=== PATIENT | female | born 1955 | race Caucasian/White ===

== ENCOUNTER 2019-05-01 17:58 | Emergency (ER) | payer BC ==
[~2019-05-01] VITALS: Ht 170.2 cm; Wt 92.1 kg
[~2019-05-01 17:58] MED LIST changes: -Carafate1 GM/10 ML PO; -Protonix40 MG PO
[2019-05-01] MEDS ORDERED: Carafate1 GM/10 ML PO (21:38)
[2019-05-01] MEDS ORDERED: Protonix40 MG PO (21:38)
== END 2019-05-01 22:45 | disposition home or self-care (01) ==
LOC: ER 17:58
DX: K29.70 Gastritis, unspecified, without bleeding (principal); K44.9 Diaphragmatic hernia without obstruction or gangrene; K42.9 Umbilical hernia without obstruction or gangrene; J45.909 Unspecified asthma, uncomplicated; Z88.1 Allergy status to other antibiotic agents; Z91.012 Allergy to eggs; Z91.011 Allergy to milk products; Z88.2 Allergy status to sulfonamides; Z88.8 Allergy status to other drugs, medicaments and biological substances; Z91.018 Allergy to other foods; Z79.899 Other long term (current) drug therapy
CPT/HCPCS: 74176; 96374; 99284-25; C9113

== ENCOUNTER → 2019-05-01 | Outpatient (CLI) | payer BC ==
[~2019-05-01] MED LIST: ALBU8HFA2 INH; ALBU90OI INH; ALBU90OI6 INH; AZEL137S; CHOL10002 PO; CRANBERRY; Carafate1 GM/10 ML PO; DOXY100 PO; ESZO2 PO; ESZO3 PO; FLUC150A PO; FLUSAL2505 IH; FLUT.05NI; FOLATE PO; INDO25 PO; LEVFLO500 PO; LORA10ER PO; METH5; METTREX2.5; NITR.4SL SL; OMEP20ER PO; PHENA200 PO; PROG100 PO; Protonix40 MG PO; RXPHEN200 PO; THYR60 PO; TRAZ100 PO; TRAZ50 PO; ZOLP10; [UNRECOGNIZED DRUG - OTHER]; [UNRECOGNIZED DRUG - OTHER]
[2019-05-01 15:29] LABS: BASOPHILS ABSOLUTE AUTO 0.07 K/mm3 (0.00-0.23); BASOPHILS PERCENT AUTO 1 % (0-2); EOSINOPHILS ABSOLUTE AUTO 0.02 K/mm3 (0.00-0.68); EOSINOPHILS PERCENT AUTO 0 % (0-6); Hematocrit 50.7 % (33.0-51.0); Hemoglobin 17.8 g/dL (11.5-16.0); IMMATURE GRAN ABSOLUTE AUTO 0.02 K/mm3 (0.00-0.10); IMMATURE GRAN PERCENT AUTO 0 % (0-1); LYMPHOCYTES ABSOLUTE AUTO 0.56 K/mm3 (0.84-5.20); LYMPHOCYTES PERCENT AUTO 7 % (21-46); MONOCYTES ABSOLUTE AUTO 0.61 K/mm3 (0.16-1.47); MONOCYTES PERCENT AUTO 7 % (4-13); Mean Corpuscular HGB 34.2 pg (26.0-34.0); Mean Corpuscular HGB Conc 35.1 g/dL (31.5-36.5); Mean Corpuscular Volume 97 fL (80-100); Mean Platelet Volume 10.9 fL (9.1-12.4); NEUTROPHILS ABSOLUTE AUTO 6.93 K/mm3 (1.96-9.15); NEUTROPHILS PERCENT AUTO 85 % (41-73); Platelet Count 255 K/mm3 (150-400); RDW Coefficient Variation 13.3 % (11.7-14.2); RDW Standard Deviation 48.3 fL (35.1-46.3); Red Blood Cell Count 5.21 M/mm3 (3.80-5.20); White Blood Cell Count 8.21 K/mm3 (4.00-11.30)
[2019-05-01 16:03] LABS: Albumin, Blood 4.2 g/dL (3.4-5.0); Albumin/Globulin Ratio 1.1 (0.8-1.8); Bilirubin, Total 1.3 mg/dL (0.1-1.0); Bun/Creatinine Ratio 13.9 (12.0-20.0); Creatinine, Blood 1.08 mg/dL (0.40-1.00); Thyroid Stimulating Hormone 0.404 uIU/mL (0.360-4.800); Total Protein, Blood 8.2 g/dL (6.4-8.2)
== END ==
LOC: LAB SHORT 15:16 → LAB EV 15:16
PROVIDERS: Nurse Practitioner
DX: R10.9 Unspecified abdominal pain (principal)
CPT/HCPCS: 80053; 83690; 84443; 85025

== ENCOUNTER → 2020-05-23 | Outpatient (CLI) | payer BC ==
[~2020-05-23] MED LIST changes: +Carafate1 GM/10 ML PO; +Protonix40 MG PO
== END | disposition home or self-care (01) ==
LOC: LAB SHORT 10:53 → PLD 10:53
DX: D22.71 Melanocytic nevi of right lower limb, including hip (principal)
CPT/HCPCS: 88305

== ENCOUNTER → 2020-06-07 | Outpatient (CLI) | payer BC | END | disposition home or self-care (01) | LOC: PLD 08:47 → LAB SHORT 08:47 | DX: D22.5 Melanocytic nevi of trunk (principal) | CPT/HCPCS: 88305 ==

== ENCOUNTER 2020-11-20 14:58 | Observation (INO) | payer BC ==
[~2020-11-20] VITALS: Ht 170.2 cm; Wt 109.0 kg
[2020-11-20] MEDS ORDERED: PROG100 PO (15:27)
[2020-11-20 15:28] LABS: BASOPHILS ABSOLUTE AUTO 0.04 K/mm3 (0.00-0.23); BASOPHILS PERCENT AUTO 1 % (0-2); EOSINOPHILS ABSOLUTE AUTO 0.12 K/mm3 (0.00-0.68); EOSINOPHILS PERCENT AUTO 2 % (0-6); Hematocrit 43.8 % (33.0-51.0); Hemoglobin 14.7 g/dL (11.5-16.0); IMMATURE GRAN ABSOLUTE AUTO 0.02 K/mm3 (0.00-0.10); IMMATURE GRAN PERCENT AUTO 0 % (0-1); LYMPHOCYTES ABSOLUTE AUTO 1.27 K/mm3 (0.84-5.20); LYMPHOCYTES PERCENT AUTO 18 % (21-46); MONOCYTES ABSOLUTE AUTO 0.59 K/mm3 (0.16-1.47); MONOCYTES PERCENT AUTO 9 % (4-13); Mean Corpuscular HGB 31.8 pg (26.0-34.0); Mean Corpuscular HGB Conc 33.6 g/dL (31.5-36.5); Mean Corpuscular Volume 95 fL (80-100); Mean Platelet Volume 10.4 fL (9.1-12.4); NEUTROPHILS ABSOLUTE AUTO 4.92 K/mm3 (1.96-9.15); NEUTROPHILS PERCENT AUTO 71 % (41-73); Platelet Count 293 K/mm3 (150-400); RDW Coefficient Variation 12.9 % (11.7-14.2); Red Blood Cell Count 4.62 M/mm3 (3.80-5.20); White Blood Cell Count 6.96 K/mm3 (4.00-11.30)
[2020-11-20] MEDS ORDERED: THYROID COMPOUND (15:28)
[2020-11-20] MEDS ORDERED: LISI5 PO (15:28)
[2020-11-20] MEDS ORDERED: ZYRTEC10 M2 PO (15:29)
[2020-11-20] MEDS ORDERED: GUAI600T33 (15:29)
[2020-11-20 15:49] LABS: Alanine Aminotransfer (ALT/SGP 23 U/L (12-78); Albumin, Blood 3.5 g/dL (3.4-5.0); Albumin/Globulin Ratio 0.9 (0.8-1.8); Alk Phos 74 U/L (50-136); Anion Gap 7 mmol/L (6-16); Aspartate Aminotrans (AST/SGOT 14 U/L (12-37); Bilirubin, Total 0.6 mg/dL (0.1-1.0); Blood Urea Nitrogen 12 mg/dL (8-24); CO2, Blood 25 mmol/L (21-32); Calcium, Blood 9.5 mg/dL (8.5-10.1); Chloride, Blood 108 mmol/L (98-108); Creatinine, Blood 0.86 mg/dL (0.40-1.00); Globulin, Blood 4.1 g/dL (2.2-4.0); Glomerular Filtration Rate >60 (60-); Glucose, Blood 112 mg/dL (70-99); Potassium, Blood 4.1 mmol/L (3.5-5.5); Sodium, Blood 140 mmol/L (136-145); Total Protein, Blood 7.6 g/dL (6.4-8.2); Troponin I <0.015 ng/mL (0.000-0.040)
[2020-11-20] MEDS ORDERED: IPRATROPIUM BRO15 ML (16:49)
[2020-11-20] MEDS ORDERED: THYR60 PO (16:55)
[2020-11-20] MEDS ORDERED: IODPOTL (16:56)
[2020-11-20] MEDS ORDERED: PROGESTERONE MI25 GM (16:57)
[2020-11-20] MEDS ORDERED: MAGNESIUM OXID500 MG PO (17:05)
--- NOTE | 2020-11-20 18:33 | NUR ---
PT ARRIVED TO FLOOR AOX4 AND COOPERATIVE OF CARE. PT DENIES ANY CHEST PAIN AT THIS TIME AND IS INDEPENDENT. CALL LIGHT IS WITHIN REACH WILL CONTINUE TO MONITOR.
--- NOTE | 2020-11-20 22:26 | NUR ---
PHYSICIAN CORRESPONDENCE STATES HAS BEEN WANTING TO TAKE HOME MEDICATIONS. IN A CLEAR BAG ON BEDSIDE TABLE. STATES THYROID, COMPOUNDED PROGESTERONE, AND MAG OX. DOES NOT HAVE THE BOTTLES. ON-CALL PROVIDER STATES TO HOLD OFF ON THOSE MEDICATIONS TONIGHT AND SPEAK TO ATTENDING IN THE AM.
[2020-11-21 05:02] LABS: BASOPHILS ABSOLUTE AUTO 0.05 K/mm3 (0.00-0.23); BASOPHILS PERCENT AUTO 1 % (0-2); EOSINOPHILS PERCENT AUTO 3 % (0-6); Hematocrit 41.3 % (33.0-51.0); Hemoglobin 13.6 g/dL (11.5-16.0); IMMATURE GRAN ABSOLUTE AUTO 0.01 K/mm3 (0.00-0.10); IMMATURE GRAN PERCENT AUTO 0 % (0-1); LYMPHOCYTES ABSOLUTE AUTO 1.48 K/mm3 (0.84-5.20); LYMPHOCYTES PERCENT AUTO 25 % (21-46); MONOCYTES ABSOLUTE AUTO 0.69 K/mm3 (0.16-1.47); MONOCYTES PERCENT AUTO 12 % (4-13); Mean Corpuscular HGB 31.7 pg (26.0-34.0); Mean Corpuscular HGB Conc 32.9 g/dL (31.5-36.5); Mean Corpuscular Volume 96 fL (80-100); Mean Platelet Volume 10.5 fL (9.1-12.4); NEUTROPHILS ABSOLUTE AUTO 3.39 K/mm3 (1.96-9.15); NEUTROPHILS PERCENT AUTO 58 % (41-73); Platelet Count 263 K/mm3 (150-400); Red Blood Cell Count 4.29 M/mm3 (3.80-5.20); White Blood Cell Count 5.82 K/mm3 (4.00-11.30)
[2020-11-21 05:19] LABS: Alanine Aminotransfer (ALT/SGP 21 U/L (12-78); Albumin, Blood 3.1 g/dL (3.4-5.0); Albumin/Globulin Ratio 0.9 (0.8-1.8); Alk Phos 64 U/L (50-136); Anion Gap 7 mmol/L (6-16); Aspartate Aminotrans (AST/SGOT 15 U/L (12-37); Bilirubin, Total 0.7 mg/dL (0.1-1.0); Blood Urea Nitrogen 11 mg/dL (8-24); Bun/Creatinine Ratio 12.1 (12.0-20.0); CO2, Blood 28 mmol/L (21-32); Calcium, Blood 9.2 mg/dL (8.5-10.1); Chloride, Blood 106 mmol/L (98-108); Creatinine, Blood 0.91 mg/dL (0.40-1.00); Globulin, Blood 3.4 g/dL (2.2-4.0); Glomerular Filtration Rate >60 (60-); Glucose, Blood 98 mg/dL (70-99); Potassium, Blood 4.3 mmol/L (3.5-5.5); Sodium, Blood 141 mmol/L (136-145); Total Protein, Blood 6.5 g/dL (6.4-8.2)
--- NOTE | 2020-11-21 06:00 | NUR ---
PHYSICIAN CORRESPONDENCE C/O HEADACHE. REQUESTING TYLENOL. NEW ORDER FOR TYLENOL 650 MG Q6
--- NOTE | 2020-11-21 07:29 | NUR ---
SHIFT SUMMARY A/O, ABLE TO MAKE NEEDS KNOWN. COOPERATIVE WITH CARE. CALLS AND ANSWERS QUESTIONS APPROPRIATELY. INDEPENDENT IN THE ROOM. NO C/O CHEST PAIN. DID STATE HEADACHE; NEW ORDERS FOR TYLENOL. TELE RUNNING SR IN 80s. VERY EAGER TO RETURN HOME. STATED DID NOT SLEEP AT ALL. BED REMAINED IN LOWEST POSITION. CALL LIGHT AND BELONGINGS WITHIN REACH. CONTINUE WITH CURRENT PLAN OF CARE. REPORT GIVEN TO ONCOMING RN.
--- NOTE | 2020-11-21 15:22 | NUR ---
ADMIT: 11/20/20 DISCHARGE: DX: CP CC: esa FARHAD CALL: RESIDENCE: Home CAREGIVER: Ken Vargas, Spouse / Partner, DX: Heart murmur, HTN, severe persistent asthma, hypothyroidism, see list DME: none CCM: none HOME HEALTH: none SUMMARY: Admit: 11/20/20 11/21/20- per chart review with Dr. Monson, pt has echo scheduled for today. She had an abnormal EKG and has been complaining of a headache. Pt has stated that she is eager to go home. Pt could potentially be d/c tomorrow, home. -daryl
--- NOTE | 2020-11-21 17:09 | NUR ---
PT AOX4 AND COOPERATIVE OF CARE. PT DENIES ANY CHEST PAIN AT THIS TIME AND CALLS APPROPRIATELY. PT COMPLETED FIRST PART OF STRESS TEST. PT IS WATCHING TV WITH CALL LIGHT AVAIBLE. NO DISTRESS NOTED WILL CONTINUE TO MONITOR.
--- NOTE | 2020-11-22 04:14 | NUR ---
SHIFT SUMMARY- PT. A&OX4, INDEPENDENT IN ROOM. NO COMPLAINTS OF CP OR DISCOMFORT T/O THE NIGHT. BEDTIME MEDS CLARIFIED LAST NIGHT WITH PROVIDER. PT. HAD SHOWER, RESTED QUIETLY IN BED T/O THE SHIFT. NO APPARENT DISTRESS NOTED. PT. SCHEDULED FOR 2ND PART OF STRESS TEST TODAY, HAS BEEN NPO [place]CE [place]. CALL LIGHT WITHIN REACH AND SIDE RAILS UPX2. WILL CONT TO MONITOR.
[2020-11-22 04:59] LABS: Cholesterol 240 mg/dL (50-200); HDL Cholesterol 60 mg/dL (>39); LDL/HDL RATIO 2.5; Low Density Lipoprotein Chol 151 mg/dL (0-110); Triglycerides 147 mg/dL (30-160); Very Low Density Lipoprot Chol 29 mg/dL (6-32)
--- NOTE | 2020-11-22 16:43 | NUR ---
IN RADIOLOGY FOR LAST PART OF STRESS TEST
[2020-11-22] MEDS ORDERED: ATOR20 PO (17:12)
[2020-11-22] MEDS ORDERED: ASPI81CH PO (17:12)
--- NOTE | 2020-11-22 17:59 | NUR ---
TALKED TO TRINH, HOPITALIST, AND SHE LOOKED AT ECHO AND STRESS TEST AND SAID OK TO SEND HOME. DR. CHRISTIANSON ALREADY WROTE D'C ORDERS AND SAID OK TO SEND HOME IF STRESS GOOD.
--- NOTE | 2020-11-22 19:28 | NUR ---
ADMIT: 11/20/20 DISCHARGE: 11/22/20 DX: CP CC: [email or web address] FARHAD CALL: call Melanie at home for farhad. 1 week farhad RESIDENCE: Home CAREGIVER: Ken Vargas, Spouse / Partner, DX: Heart murmur, HTN, severe persistent asthma, hypothyroidism, see list DME: none CCM: none HOME HEALTH: none SUMMARY: Admit: 11/20/20 11/22/20 Discharge home with , Stress test completed today. Left FARHAD letter with Nurse for patient since she was in testing in the afternoon. cp 11/21/20- per chart review with Dr. Monson, pt has echo scheduled for today. She had an abnormal EKG and has been complaining of a headache. Pt has stated that she is eager to go home. Pt could potentially be d/c tomorrow, home. -kjw 1: Chest pain
== END 2020-11-22 18:37 | disposition home or self-care (01) ==
LOC: ER 14:58 → MEDS 14:59 → ER 17:00 → MEDS 17:00
PROVIDERS: Emergency Medicine; Internal Medicine; ADMIT Family Medicine
DX: R07.89 Other chest pain (principal); I10 Essential (primary) hypertension; E78.5 Hyperlipidemia, unspecified; E03.9 Hypothyroidism, unspecified; F51.04 Psychophysiologic insomnia; E66.9 Obesity, unspecified; J45.909 Unspecified asthma, uncomplicated; Z82.3 Family history of stroke; Z88.1 Allergy status to other antibiotic agents; Z91.012 Allergy to eggs; Z91.011 Allergy to milk products; Z88.2 Allergy status to sulfonamides; Z88.8 Allergy status to other drugs, medicaments and biological substances; Z91.018 Allergy to other foods; Z91.048 Other nonmedicinal substance allergy status
CPT/HCPCS: 36415; 71046; 78452; 80053; 80061; 83036; 84484; 85025; 93005; 93010; 93017; 93306; 96372-59; 96374; 99285-25; A9270; A9500; G0378; J0706; J1650; J2785

== ENCOUNTER 2021-01-16 08:03 | Day surgery (SDC) | payer BC ==
[~2021-01-16] VITALS: Ht 170.2 cm; Wt 107.9 kg
[~2021-01-16 08:03] MED LIST changes: +ASPI81CH PO; +ATOR20 PO; +GUAI600T33; +IODPOTL; +IPRATROPIUM BRO15 ML; +LISI5 PO; +MAGNESIUM OXID500 MG PO; +PROGESTERONE MI25 GM; +THYROID COMPOUND; +ZYRTEC10 M2 PO
[2021-01-16] MEDS ORDERED: SUCR1 (08:28)
[2021-01-16] MEDS ORDERED: CIME400 (08:28)
[2021-01-16] MEDS ORDERED: NITR.4SL (08:28)
== END 2021-01-16 10:23 | disposition home or self-care (01) ==
LOC: ORSCSDS 08:03
PROVIDERS: Student in an Organized Health Care Education/Training Program
PROC: 0DB48ZX Excision of Esophagogastric Junction, Via Natural or Artificial Opening Endoscopic, Diagnostic (ICD-10-PCS; principal; 2021-01-16 10:00)
PROC: 0DB78ZX Excision of Stomach, Pylorus, Via Natural or Artificial Opening Endoscopic, Diagnostic (ICD-10-PCS; principal; 2021-01-16 10:00)
PROC: 0DB98ZX Excision of Duodenum, Via Natural or Artificial Opening Endoscopic, Diagnostic (ICD-10-PCS; principal; 2021-01-16 10:00)
DX: R13.14 Dysphagia, pharyngoesophageal phase (principal); K21.9 Gastro-esophageal reflux disease without esophagitis; R11.0 Nausea; K44.9 Diaphragmatic hernia without obstruction or gangrene; K29.70 Gastritis, unspecified, without bleeding; I10 Essential (primary) hypertension; J45.909 Unspecified asthma, uncomplicated; E03.9 Hypothyroidism, unspecified; Z79.899 Other long term (current) drug therapy
CPT/HCPCS: 88305; 88312; 88342; J2704; J7120

== ENCOUNTER → 2022-11-26 | Outpatient (CLI) | payer OTHER ==
[~2022-11-26] MED LIST changes: +CIME400; +NITR.4SL; +SUCR1
[2022-11-26 14:42] LABS: Source, Urine Clean Catch
[2022-11-26 15:04] LABS: BASOPHILS ABSOLUTE AUTO 0.07 K/mm3 (0.00-0.23); BASOPHILS PERCENT AUTO 1 % (0-2); EOSINOPHILS ABSOLUTE AUTO 0.22 K/mm3 (0.00-0.68); EOSINOPHILS PERCENT AUTO 3 % (0-6); Hematocrit 44.1 % (33.0-51.0); Hemoglobin 15.7 g/dL (11.5-16.0); IMMATURE GRAN ABSOLUTE AUTO 0.02 K/mm3 (0.00-0.10); IMMATURE GRAN PERCENT AUTO 0 % (0-1); LYMPHOCYTES ABSOLUTE AUTO 1.17 K/mm3 (0.84-5.20); LYMPHOCYTES PERCENT AUTO 15 % (21-46); MONOCYTES ABSOLUTE AUTO 0.94 K/mm3 (0.16-1.47); MONOCYTES PERCENT AUTO 12 % (4-13); Mean Corpuscular HGB 31.6 pg (26.0-34.0); Mean Corpuscular HGB Conc 35.6 g/dL (31.5-36.5); Mean Corpuscular Volume 89 fL (80-100); Mean Platelet Volume 11.2 fL (9.1-12.4); NEUTROPHILS ABSOLUTE AUTO 5.27 K/mm3 (1.96-9.15); NEUTROPHILS PERCENT AUTO 69 % (41-73); Platelet Count 270 K/mm3 (150-400); RDW Standard Deviation 53.8 fL (35.1-46.3); Red Blood Cell Count 4.97 M/mm3 (3.80-5.20); White Blood Cell Count 7.69 K/mm3 (4.00-11.30)
[2022-11-26 15:09] LABS: Bacteria Mod /hpf; Red Blood Cells, Urine 0-2 /hpf (0-2); Squamous Epithelial Cells Many /hpf (Few)
[2022-11-26 15:25] LABS: Albumin, Blood 2.5 g/dL (3.4-5.0); Albumin/Globulin Ratio 0.6 (0.8-1.8); Bilirubin, Total 15.9 mg/dL (0.1-1.0); Bun/Creatinine Ratio 9.6 (12.0-20.0); Calcium, Blood 9.1 mg/dL (8.5-10.1); Creatinine, Blood 1.35 mg/dL (0.40-1.00); Globulin, Blood 4.2 g/dL (2.2-4.0); Potassium, Blood 3.5 mmol/L (3.5-5.5); Total Protein, Blood 6.7 g/dL (6.4-8.2)
[2022-11-26 15:38] LABS: Lactate Dehydrogenase (Ld),Bld 367 U/L (100-240)
[2022-11-26 15:45] LABS: International Normalized Ratio 1.48; Prothrombin Time Results 15.1 Sec (9.7-11.5)
[2022-11-27 10:12] LABS: HBSAG SCREEN Negative (Negative); HCV AB Non Reactive (Non Reactive); HEP A AB, IGM Negative (Negative); HEP B CORE AB, TOT Negative (Negative)
== END | disposition home or self-care (01) ==
LOC: LAB SHORT 14:40 → LAB 14:40
PROVIDERS: Emergency Medicine
DX: R82.90 Unspecified abnormal findings in urine (principal); R10.11 Right upper quadrant pain; R17 Unspecified jaundice
CPT/HCPCS: 80053; 81015; 83615; 83690; 85025; 85610; 85730; 86704; 86708; 86803; 87340

== ENCOUNTER → 2024-01-03 | Outpatient (CLI) | payer OTHER ==
[2024-01-03 17:17] LABS: Bacterial Vaginosis PCR Negative (NEGATIVE); Candida Group, PCR NOT DETECTED (NOT DETECT); Candida glabrata-krusei, PCR NOT DETECTED (NOT DETECT)
== END | disposition home or self-care (01) ==
LOC: LAB 15:25 → LAB SHORT 15:25
PROVIDERS: Family Medicine
DX: Z01.419 Encounter for gynecological examination (general) (routine) without abnormal findings (principal); N89.8 Other specified noninflammatory disorders of vagina
CPT/HCPCS: 87481; 87661; 87801

== ENCOUNTER → 2025-03-07 | Outpatient (CLI) | payer OTHER | LOC: LAB 12:09 → LAB SHORT 12:09 | DX: N39.0 Urinary tract infection, site not specified (principal) | CPT/HCPCS: 87077; 87086; 87186 ==

== ENCOUNTER 2025-07-08 01:23 | Emergency (ER) | payer OTHER ==
[~2025-07-08] VITALS: Ht 167.6 cm; Wt 90.7 kg
[2025-07-08] MEDS ORDERED: Ipratropium/Albuterol SulF 2.5-0.5MG/3 ML Amp INH PRN (01:40)
[2025-07-08 02:04] LABS: Alanine Aminotransfer (ALT/SGP 26.0 U/L (12-78); Albumin, Blood 3.6 g/dL (3.4-5.0); Albumin/Globulin Ratio 1.1 (0.8-1.8); Anion Gap 11.0 mmol/L (3-11); Aspartate Aminotrans (AST/SGOT 20.0 U/L (12-37); Bilirubin, Total 0.3 mg/dL (0.1-1.0); Blood Urea Nitrogen 30.0 mg/dL (8-24); CO2, Blood 24.0 mmol/L (21-32); Calcium, Blood 9.6 mg/dL (8.5-10.1); Chloride, Blood 106.0 mmol/L (98-108); Creatinine, Blood 1.08 mg/dL (0.40-1.00); Globulin, Blood 3.4 g/dL (2.2-4.0); Glucose, Blood 131.0 mg/dL (70-99); Potassium, Blood 4.1 mmol/L (3.5-5.5); Sodium, Blood 137.0 mmol/L (136-145); Total Protein, Blood 7.0 g/dL (6.4-8.2)
[2025-07-08 02:25] LABS: BASOPHILS ABSOLUTE AUTO 0.06 K/mm3 (0.00-0.23); BASOPHILS PERCENT AUTO 1 % (0-2); EOSINOPHILS ABSOLUTE AUTO 0.09 K/mm3 (0.00-0.68); EOSINOPHILS PERCENT AUTO 1 % (0-6); Hematocrit 41.3 % (33.0-51.0); Hemoglobin 13.9 g/dL (11.5-16.0); IMMATURE GRAN ABSOLUTE AUTO 0.05 K/mm3 (0.00-0.10); IMMATURE GRAN PERCENT AUTO 0 % (0-1); LYMPHOCYTES ABSOLUTE AUTO 1.46 K/mm3 (0.84-5.20); LYMPHOCYTES PERCENT AUTO 13 % (21-46); MONOCYTES ABSOLUTE AUTO 0.97 K/mm3 (0.16-1.47); MONOCYTES PERCENT AUTO 9 % (4-13); Mean Corpuscular HGB Conc 33.7 g/dL (31.5-36.5); Mean Corpuscular Volume 93 fL (80-100); NEUTROPHILS ABSOLUTE AUTO 8.66 K/mm3 (1.96-9.15); NEUTROPHILS PERCENT AUTO 77 % (41-73); NRBC ABSOLUTE 0.00 K/mm3 (0.00-0.02); NRBC Auto 0.0 /100 WBC (0.0-0.2); Platelet Count 250 K/mm3 (150-400); RDW Coefficient Variation 14.2 % (11.7-14.2); RDW Standard Deviation 48.4 fL (35.1-46.3)
[2025-07-08] MEDS ORDERED: Diazepam 5 MG / ML 2ML SYR IV ONE (04:25)
[2025-07-08] MEDS ORDERED: Atarax10 MG PO (05:38)
[2025-07-08 06:01] VITALS: BP 111/77
== END 2025-07-08 06:04 | disposition home or self-care (01) ==
LOC: ER 01:23
PROVIDERS: Emergency Medicine
DX: R06.02 Shortness of breath (principal)
CPT/HCPCS: 71046; 80053; 84484; 85025; 85379; 93005; 93010; 96374; 99285-25; J3360